=== PATIENT | female | born 1945 | race Caucasian/White ===

== ENCOUNTER 2021-10-07 21:36 | Emergency (ER) | payer OTHER ==
[~2021-10-07] VITALS: Ht 152.4 cm; Wt 71.7 kg
[2021-10-07 21:40] VITALS: BP 129/64
== END 2021-10-07 23:33 | disposition left against medical advice (07) ==
LOC: MED 21:36
DX: M25.571 Pain in right ankle and joints of right foot (principal); M25.572 Pain in left ankle and joints of left foot; Z53.21 Procedure and treatment not carried out due to patient leaving prior to being seen by health care provider

== ENCOUNTER 2022-08-06 20:59 | Emergency (ER) | payer OTHER, MEDICAID ==
[~2022-08-06] VITALS: Ht 152.4 cm; Wt 74.8 kg
[2022-08-06 21:03] VITALS: BP 139/87
--- NOTE | 2022-08-06 21:04 | NUR ---
BIBA TO BED #11
--- NOTE | 2022-08-06 21:30 | NUR ---
20G PLACED IN RIGHT AC
[2022-08-06 21:31] LABS: BASOPHILS # (AUTO) 0.1 K/uL (0.00-0.22); BASOPHILS % (AUTO) 1.1 % (0.0-2.0); EOSINOPHILS # (AUTO) 0.1 K/uL (0-0.4); EOSINOPHILS % (AUTO) 0.9 % (0.0-4.0); HEMATOCRIT 34.7 % (36-48); HEMOGLOBIN 11.1 g/dL (12.0-16.0); LYMPHOCYTES # (AUTO) 1.7 K/uL (2.5-16.5); LYMPHOCYTES % (AUTO) 27.3 % (20.5-51.1); MEAN CORPUSCULAR HEMOGLOBIN 25 pg (27-31); MEAN CORPUSCULAR HGB CONC 32 g/dL (33-37); MEAN CORPUSCULAR VOLUME 77.2 fL (80-94); MONOCYTES # (AUTO) 0.6 K/uL (0.8-1.0); MONOCYTES % (AUTO) 9.5 % (1.7-9.3); NEUTROPHILS # (AUTO) 3.8 K/uL (1.8-7.7); NEUTROPHILS % (AUTO) 61.2 % (42.2-75.2); PLATELET COUNT (AUTO) 417 K/uL (140-450); RED CELL DISTRIBUTION WIDTH 18.5 % (11.6-13.7); WHITE BLOOD COUNT (AUTO) 6.2 K/uL (4.8-10.8)
--- NOTE | 2022-08-06 21:48 | NUR ---
LABS AND URINE SENT TO LAB
[2022-08-06 21:51] LABS: ALBUMIN 3.5 g/dL (3.4-5.0); ANION GAP 10.4 (8-16); ASPARTATE AMINOTRANSFERASE 26 U/L (15-37); CARBON DIOXIDE 30.5 mmol/L (21-32); CHLORIDE 102 mmol/L (98-107); CREATININE 0.8 mg/dL (0.6-1.3); GLUCOSE 102 mg/dL (74-106); LIPASE 76 U/L (73-393); SODIUM SERUM 140 mmol/L (136-145); TOTAL BILIRUBIN 0.3 mg/dL (0.0-1.0); UREA NITROGEN, BLOOD 8 mg/dL (7-18)
[2022-08-06 21:56] LABS: APPEARANCE,URINE CLEAR (CLEAR); BILIRUBIN,URINE NEGATIVE (NEGATIVE); BLOOD, URINE NEGATIVE (NEGATIVE); COLOR,URINE YELLOW (YELLOW); LEUKOCYTE ESTERASE ,URINE NEGATIVE (NEGATIVE); NITRITE, URINE NEGATIVE (NEGATIVE); UGLUCOSE 3+ (NEGATIVE)
[2022-08-06 21:59] LABS: POTASSIUM 2.9 mmol/L (3.5-5.1)
[2022-08-06] MEDS ORDERED: POTASSIUM CHLORIDE 10 MEQ TABER PO ONE ×2 (22:05)
[2022-08-06] MEDS ORDERED: MORPHINE SULFATE 4 MG/ML SYR IVP ONE (22:20)
--- NOTE | 2022-08-06 23:17 | NUR ---
PATIENT OFFERED BED MARTIN
[2022-08-06] MEDS ORDERED: ACET-10509 PO (23:52)
[2022-08-06] MEDS ORDERED: DICL20GE TP (23:52)
[2022-08-06] MEDS ORDERED: LID5T TP (23:52)
[2022-08-07 01:27] VITALS: BP 135/90
--- NOTE | 2022-08-07 01:54 | NUR ---
Patient discharged with v/s stable BY ERMD. Written and verbal after care instructions given and explained. Patient verbalized understanding. Wheel Chair Assisted with to home. All questions addressed prior to discharge. Advised to follow up with PMD.
--- NOTE | 2022-08-07 02:09 | NUR ---
PATIENT DC, INSTRUCTIONS PROVIDED AND PT VERBALIZED UNDERSTANDING.
== END 2022-08-07 02:09 | disposition home or self-care (01) ==
LOC: MED 20:59
DX: K52.9 Noninfective gastroenteritis and colitis, unspecified (principal); E87.6 Hypokalemia; M25.552 Pain in left hip; E11.40 Type 2 diabetes mellitus with diabetic neuropathy, unspecified; Z79.4 Long term (current) use of insulin; Z79.899 Other long term (current) drug therapy
CPT/HCPCS: 36415; 74177; 80053; 81003; 83690; 84484; 85025; 93005; 96374; 99285; J2270; Q9967